=== PATIENT | male | born 1980 | race Two or more races ===

== ENCOUNTER 2023-02-05 22:16 | Emergency (ER) | payer OTHER ==
[~2023-02-05] VITALS: Ht 177.8 cm; Wt 81.0 kg
[2023-02-05 23:57] LABS: Basophils # (auto) 0.1 10 ^3/uL (0-0.2); Basophils % (auto) 0.4 % (0.0-2.0); Eosinophils # (auto) 0 10 ^3/uL (0-0.8); Hematocrit 41.9 % (41.0-53.0); Hemoglobin 14.4 g/dL (13.5-17.5); Lymphocytes # (auto) 0.8 10 ^3/uL (0.4-5.4); Lymphocytes % (auto) 4.8 % (10.0-50.0); Mean Corpuscular Hemoglobin 31.2 pg (28.0-32.0); Mean Corpuscular Hgb Conc. 34.3 g/dL (32.0-36.0); Monocytes # (auto) 1.7 10 ^3/uL (0-1.3); Monocytes % (auto) 10.1 % (0.0-12.0); Neutrophils # (auto) 14.2 10 ^3/uL (1.6-8.6); Neutrophils % (auto) 84.7 % (37.0-80.0); Red Blood Cells 4.61 10^6/uL (4.5-5.90); White Blood Cell 16.7 10^3/uL (4.4-10.8)
[2023-02-06 00:18] LABS: Albumin 3.7 g/dL (3.4-5.0); BUN/Creatinine Ratio 12.4 (10.0-20.0); Potassium 3.8 mmol/L (3.5-5.1)
[2023-02-06 00:20] LABS: Bilirubin, Total 1.5 mg/dL (0.2-1.0); Total Protein 8.4 g/dL (6.4-8.2)
[2023-02-06 01:39] LABS: Urine Bacteria NONE SEEN /hpf (None Seen); Urine Blood 1+ /uL (Negative); Urine Mucus FEW (None Seen); Urine Specific Gravity 1.036 (1.001-1.035); Urine WBC 166 /hpf (0 - 3)
[2023-02-06 01:51] LABS: Alcohol, Urine < 3.0 mg/dL (0-10); Amphetamine Screen, Urine NEGATIVE (NEGATIVE); Barbiturate Scree,Urine NEGATIVE (NEGATIVE); Benzodiazephine Screen, Urine NEGATIVE (NEGATIVE); Cannabinoid Screen, Urine POSITIVE (NEGATIVE); Cocaine Screen, Urine NEGATIVE (NEGATIVE); Opiate Scree,Urine NEGATIVE (NEGATIVE); Phencyclidine Screen, Urine NEGATIVE (NEGATIVE)
[2023-02-06 02:00] VITALS: BP 112/64; PULSE 91; RESP 18; TEMP 99.1; O2SAT 100
[2023-02-06] MEDS ORDERED: AZITHROMYCIN 250 MG TAB PO ONE (02:00)
[2023-02-06] MEDS ORDERED: cefTRIAXone SOD 1,000 MG VL IM ONE (02:00)
[2023-02-06] MEDS ORDERED: PERCOT PO (02:03)
[2023-02-06] MEDS ORDERED: ZOFR4T PO (02:03)
[2023-02-06] MEDS ORDERED: DOXY-448 PO (02:03)
== END 2023-02-06 02:25 | disposition home or self-care (01) ==
LOC: ER 22:16
DX: N39.0 Urinary tract infection, site not specified (principal); R10.9 Unspecified abdominal pain; R36.9 Urethral discharge, unspecified; G40.909 Epilepsy, unspecified, not intractable, without status epilepticus
CPT/HCPCS: 36415; 70450; 71045; 71250; 74176; 80053; 80307; 81001; 83880; 84484; 85025; 93005